=== PATIENT | male | born 1945 | race Caucasian/White ===

== ENCOUNTER → 2018-01-04 | Outpatient (CLI) | payer MEDICARE, OTHER ==
[2015-02-07 09:00] VITALS: BP 141/89
[~2018-01-04] MED LIST: ALPR0.5T6 PO; ASPI-482 PO; ATOR40TA59 PO; BYSTOLIC10 MG PO; DUTA0.5C PO; GLIM1TAB2 PO; LEVO200T5 PO; LEVOXYL; METO100T7 PO; METO50TA6 PO; OMEG1CAP43 PO; PANT40TA3 PO; ZOLP10TA4 PO
--- NOTE | 2018-01-04 14:25 | KCIC ---
MRI Lumbar Spine without contrast History: Neurogenic claudication, bilateral hip pain, bilateral knee pain since 2004 Technique: Multiplanar, multi sequential noncontrast MR imaging was performed of the lumbar spine. Contrast: None Comparison: None Findings: Lumbar vertebral body stature is preserved. There is some motion degradation. There is negligible posterior subluxation of L1 relative L2. There is mild degenerative disc disease L5-S1, L4-5, and L1-2, mild disc desiccation at the other levels. There is hemangioma of the L2 vertebral body, no suspicious marrow edema. There is minimal edema of the anterior corners at L5-S1 probably reactive/degenerative in etiology. 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 Conus terminates at the superior aspect of L2. L1-L2: There is minimal disc osteophyte complex and bulge. There is mild buckling of the ligamentum flavum and facet degenerative change. There is very mild narrowing of the far left lateral recess. There is mild narrowing of the left neural foramen, right neural foramen adequate. L2-L3: There is negligible bulge. There is mild buckling of the ligamentum flavum and facet hypertrophic change. The spinal canal is overall adequate. Neural foramina are adequate. L3-L4: There is disc osteophyte complex and bulge. There is mild buckling of the ligamentum flavum and mild facet hypertrophic change. There is mild narrowing of the far lateral recesses bilaterally. Neural foramina are overall adequate. L4-L5: There is disc osteophyte complex. There is mild buckling of the ligamentum flavum. Spinal canal is overall adequate. There is moderate narrowing of the right neural foramen primarily from posteriorly by facet although also minimal disc osteophyte complex. Left neural foramen is overall adequate. L5-S1: There is minimal bulge. There is ixip-xu-eyaqyujo facet degenerative change. Spinal canal is adequate. There is moderate to severe left and mild right neural foramina compromise. Impression: 1. There is mild narrowing of the far lateral recesses bilaterally at L3-L4 and on the left at L1-2. 2. There is multilevel mild degenerative disc disease and spondylosis. 3. There is moderate to severe narrowing of the left L5-S1 neural foramen, moderate narrowing on the right at L4-5. There is mild narrowing on the left at L1-L2 and on the right at L5-S1. Electronically signed by: Simone Ray MD (01/04/2018 2:22 PM) [facility]
== END | disposition home or self-care (01) ==
LOC: KCIC MRI 13:00
PROVIDERS: ATTEND Family Medicine
DX: M51.36 Other intervertebral disc degeneration, lumbar region (principal); M48.07 Spinal stenosis, lumbosacral region; M47.896 Other spondylosis, lumbar region; M48.061 Spinal stenosis, lumbar region without neurogenic claudication; M25.78 Osteophyte, vertebrae; I10 Essential (primary) hypertension; E78.00 Pure hypercholesterolemia, unspecified; J45.909 Unspecified asthma, uncomplicated; K21.9 Gastro-esophageal reflux disease without esophagitis; Z87.891 Personal history of nicotine dependence
CPT/HCPCS: 72148

== ENCOUNTER 2018-01-24 09:30 | Outpatient (CLI) | payer MEDICARE, OTHER ==
[~2018-01-24 09:30] MED LIST changes: +IOHEXOL 180 MG/ML 10 ML VIAL. IT ONE; +LIDOCAINE WITH 8.4% SOD BICARB 3 ML DISP.SYRIN. INJ ONE
[2018-01-24 11:21] VITALS: BP 123/63
[2018-01-24 11:59] VITALS: BP 140/78
--- NOTE | 2018-01-24 14:57 | RAD ---
Lumbar myelogram, 01/24/2018: History: Back and leg pain Under local anesthesia, aseptic conditions and fluoroscopic guidance a lumbar puncture was performed at the L2-3 level utilizing a 25-gauge Singh spinal needle. Good clear CSF flow was obtained following which 15 cc of Omnipaque 180 was injected into the thecal sac. Spinal needle was then removed and appropriate digital imaging performed. 4.3 minutes of fluoroscopy time was utilized. 14 fluoroscopic spot images were recorded. The patient tolerated the procedure well and was sent to CT in good condition. The following findings were delineated on the myelogram: 1. There are mild anterior extradural defects at all the disc levels from L1-2 down through L4-5. No high-grade central spinal stenosis is evident. 2. Upright views in flexion and extension demonstrate no significant instability. 3. There is mild narrowing of the AP dimension of the thecal sac at the L3-4 level in the upright position due to a combination of anterior and posterior extradural defects. The thecal sac measures 8 mm in AP dimension at this level. 4. There is symmetric opacification of the nerve root sleeves. CT of the lumbar spine-post myelogram, 01/24/2018: Multidetector CT imaging was performed with multiplanar reconstructions produced. Following findings are delineated: 1. At L1-2 there is a vacuum disc phenomena with mild posterior spurring and disc bulging. The central spinal canal is well maintained. There is mild inferior foraminal narrowing bilaterally. 2. At L2-3 there is mild posterior annular bulging. There are mild degenerative changes involving the facet joints. The central spinal canal and neural foramina are well maintained. 3. At L3-4 there are mild degenerative changes involving the facet joints with moderate posterior ligamentous thickening. There is mild posterior disc bulging. The thecal sac measures 10 mm in AP diameter at the midline. The neural foramina are well maintained. 4. At L4-5 there is mild disc space narrowing and mild marginal spurring which is most prominent laterally on the right. There are moderate degenerative changes involving the facet joints with posterior ligamentous thickening. The central spinal canal is well-maintained in the supine position for the CT scans. Spurring is causing moderate right foraminal narrowing medially and mild left foraminal narrowing. 5. At L5-S1 there is moderate broad-based posterior disc bulging and mild marginal spurring. There are moderate hypertrophic degenerative changes involving the facet joints. The central spinal canal is well maintained. There is moderate bilateral foraminal narrowing, worse on the left. 6. There is mild aortoiliac calcific plaquing. The visualized paraspinal soft tissues are otherwise unremarkable. IMPRESSION: Moderate multilevel degenerative change with moderate foraminal narrowing at several levels as described above. No high-grade central spinal stenosis or spinal instability is evident. PQRS Compliance Statement: One or more of the following individualized dose reduction techniques were utilized for this examination: 1. Automated exposure control 2. Adjustment of the mA and/or kV according to patient size 3. Use of iterative reconstruction technique
== END 2018-01-24 12:02 | disposition home or self-care (01) ==
LOC: RAD 09:30
PROVIDERS: ATTEND Neurological Surgery
DX: M47.896 Other spondylosis, lumbar region (principal); M48.061 Spinal stenosis, lumbar region without neurogenic claudication; M48.07 Spinal stenosis, lumbosacral region
CPT/HCPCS: 72132; 72265; Q9965

== ENCOUNTER → 2018-02-22 | Outpatient (CLI) | payer MEDICARE, OTHER ==
[2018-01-24 11:59] VITALS: BP 140/78
[~2018-02-22] MED LIST changes: +APIX5TAB PO; +FINA5TAB4 PO; -IOHEXOL 180 MG/ML 10 ML VIAL. IT ONE; -LIDOCAINE WITH 8.4% SOD BICARB 3 ML DISP.SYRIN. INJ ONE
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
== END | disposition home or self-care (01) ==
LOC: PNCL 10:03
PROVIDERS: ATTEND Anesthesiology
DX: M51.36 Other intervertebral disc degeneration, lumbar region (principal); M79.662 Pain in left lower leg; M79.661 Pain in right lower leg; I10 Essential (primary) hypertension; E11.9 Type 2 diabetes mellitus without complications; E78.5 Hyperlipidemia, unspecified; I48.91 Unspecified atrial fibrillation; M19.90 Unspecified osteoarthritis, unspecified site
CPT/HCPCS: G0463

== ENCOUNTER → 2018-04-14 | Outpatient (CLI) | payer MEDICARE, OTHER ==
--- NOTE | 2018-04-14 18:37 | PAIN ---
DATE OF SERVICE: 04/14/2018 PROGRESS NOTE FOR PAIN CLINIC DIAGNOSES: 1. Lumbar radiculopathy with lumbar degenerative disk disease. 2. Lumbar spinal stenosis. HISTORY OF PRESENT ILLNESS: The patient is a 72-year-old male who returns for followup status post spinal cord stimulator temporary lead placement 5 days ago. The patient has had the leads in now for the full week, has been walking and doing his daily activities with greater ease and comfort, but reports significant pain, decrease in his left leg and his low back, but his right leg is still significantly painful. The patient reports no new motor or sensory deficits, but has significant decreased pain in the left knee, left hip, low back is almost completely pain-free, although his right leg and knee still remains fairly painful, not that much different than prior to the stimulator placement on the right knee only. The patient reports otherwise doing quite well. The patient reports his pain during the last week was 7 on a scale of 10 at its worst, 4 at its least, 5 on average and 4 today. The patient reports it is aching, dull, shooting, on and off intensity. The patient reports no new motor or sensory deficits. Again, no new bowel or bladder incontinence or other complaints. PHYSICAL EXAMINATION: VITAL SIGNS: The patient's blood pressure is 111/77, pulse 59, respirations 16, temperature 98.1 degrees Fahrenheit, height is 6 feet, weight 326 pounds. GENERAL: The patient is awake, alert, oriented, appropriate, very pleasant demeanor. HEENT: Shows normocephalic, atraumatic. Extraocular movements intact and symmetrical. Oral cavity appears moist and pink. Dentition is intact. NECK: Shows anterior throat supple without palpable lymphadenopathy noted. Swallow reflex is symmetrical. CHEST: Shows normal on inspection. Breath sounds clear to auscultation bilaterally. HEART: Shows S1, S2 clear. No murmurs auscultated. ABDOMEN: Soft, nontender, nondistended. No palpable organomegaly is noted. No rebound or guarding demonstrated. BACK: Shows spine grossly in the midline. Normal-appearing thoracic kyphosis and lumbar lordotic curvature. Lumbar spine shows well bandaged spinal cord stimulator leads. Leads were undressed and sterilely removed with the sutures cut. Both leads intact, tips intact x 2. Sites clean and dry, no erythema, no drainage or exudate, no swelling. ASSESSMENT AND PLAN: The patient will follow up as necessary. Would like to consider his options for permanent stimulator. We asked him to give it a few days and see how he feels. If the pain comes back significantly or he decides that it was significant enough improvement to pursue a permanent stimulator, then we will make those arrangements. The patient would like to consider this. I encouraged him to take his time and consider his options. He will follow up at this time on an as needed basis. PAVAN CANO MD DR: JAVAN/marti JOB#: [id number] / [id number]
== END | disposition home or self-care (01) ==
LOC: PNCL 12:03
PROVIDERS: ATTEND Anesthesiology
DX: M51.16 Intervertebral disc disorders with radiculopathy, lumbar region (principal); M48.061 Spinal stenosis, lumbar region without neurogenic claudication
CPT/HCPCS: G0463

== ENCOUNTER 2018-09-22 03:03 | Emergency (ER) | payer MEDICARE, OTHER ==
[~2018-09-22] VITALS: Ht 182.9 cm; Wt 145.1 kg
[2018-09-22] MEDS ORDERED: AMLO10TA8 PO (03:29)
[2018-09-22] MEDS ORDERED: BENZ-8 PO (03:29)
[2018-09-22] MEDS ORDERED: MIRT15TA3 PO (03:29)
[2018-09-22] MEDS ORDERED: FURO-69 PO (03:30)
[2018-09-22] MEDS ORDERED: PRED20TA PO (03:30)
[2018-09-22] MEDS ORDERED: GABA-689 PO (03:31)
[2018-09-22 03:44] LABS: BASO # 0.1 x10^3/uL (0.0-0.2); BASO % 1 % (0-3); EOS # 0.1 x10^3/uL (0.0-0.7); EOS % 2 % (0-3); HEMATOCRIT 48.2 % (39.0-53.0); HEMOGLOBIN 16.1 g/dL (13.0-17.5); LYMPH # 2.7 x10^3/uL (1.0-4.8); LYMPH % 34 % (24-48); MEAN CORPUSCULAR HEMOGLOBIN 33 pg (25-35); MEAN CORPUSCULAR HGB CONC 33 g/dL (31-37); MEAN CORPUSCULAR VOLUME 98 fL (79-100); MONO # 0.9 x10^3/uL (0.0-1.1); MONO % 12 % (0-9); NEUT # 4.2 x10^3uL (1.8-7.7); NEUT % 52 % (31-73); PLATELET COUNT 252 x10^3/uL (140-400); RED CELL DISTRIBUTION WIDTH 14.2 % (11.5-14.5); WHITE BLOOD COUNT 8.1 x10^3/uL (4.0-11.0)
[2018-09-22 03:52] LABS: CALCIUM 9.1 mg/dL (8.5-10.1); GFR 73.7; POTASSIUM 3.9 mmol/L (3.5-5.1)
[2018-09-22 03:58] LABS: ALBUMIN 3.6 g/dL (3.4-5.0); TOTAL BILIRUBIN 0.6 mg/dL (0.2-1.0); TOTAL PROTEIN 7.2 g/dL (6.4-8.2)
[2018-09-22] MEDS ORDERED: IPRATRPIUM/ALBUTEROL 0.5/2.5MG 3 ML NEBU. NEB ONE (04:00)
[2018-09-22] MEDS ORDERED: methylPREDNISolone SOD SUCC PF 125 MG/2 ML VIAL. IV ONE (04:00)
--- NOTE | 2018-09-22 04:13 | RAD ---
PA and lateral chest. HISTORY: Dyspnea PA and lateral views were taken of the chest. Lungs are free of acute infiltrates. Heart is upper normal in size. There is no pleural effusion. There is not evidence of heart failure. IMPRESSION: 1. No acute chest disease. Electronically signed by: Elías Robertson MD (09/22/2018 4:11 AM) [facility]
--- NOTE | 2018-09-22 04:39 | PHYS DOC ---
Past Medical History Past Medical History: A-Fib, Asthma, Hypertension, Hypothyroid Additional Past Medical Histor: lower extremity swelling Past Surgical History: No Surgical History, Other Alcohol Use: None Drug Use: None Adult General Chief Complaint Chief Complaint: COUGH HPI HPI Patient is a 73-year-old male who presents with complaint of cough, wheezing, shortness of breath and just states that he feels like he is not getting any better. Patient was seen about a week ago by his primary provider and was prescribed a Z-Jan as well as a steroid pack. He states that at times the cough gets so bad that it causes his head to feel like it's can explode. He denies any chest pain but does admit to some burning in his chest with the cough. He denies any fever. Patient states that he does get a little bit short of breath with exertion. He states that nothing is improving his symptoms.[] Review of Systems Review of Systems Constitutional: Denies fever or chills [] Respiratory: Positive cough and exertional shortness of breath [] Cardiovascular: No additional information not addressed in HPI [] GI: Denies abdominal pain, nausea, vomiting or diarrhea [] Integument: Denies rash or skin lesions [] Neurologic: Complains of headache without focal weakness or sensory changes [] All other systems were reviewed and found to be within normal limits, except as documented in this note. Current Medications Current Medications Current Medications Medications (Trade) Dose Ordered Sig/[facility] Start Time Stop Time Status Last Admin Dose Admin Albuterol/ Ipratropium (Duoneb) 3 ml 1X ONCE 09/22/18 04:00 09/22/18 04:01 DC Fentanyl Citrate (Fentanyl 2ml Vial) 50 mcg 1X ONCE 09/22/18 05:00 09/22/18 05:01 DC 09/22/18 04:56 50 MCG Methylprednisolone Sodium Succinate (SOLU-Medrol 125MG VIAL) 125 mg 1X ONCE 09/22/18 04:00 09/22/18 04:01 DC 09/22/18 03:56 125 MG Allergies Allergies Allergies Coded Allergies Type Severity Reaction Last Updated Verified No Known Drug Allergies 02/07/15 No Physical Exam Physical Exam Constitutional: Well developed, well nourished, no acute distress, non-toxic appearance. [] HENT: Normocephalic, atraumatic, bilateral external ears normal, oropharynx moist, no oral exudates, nose normal. [] Eyes: PERRLA, EOMI, conjunctiva normal, no discharge. [] Neck: Normal range of motion, no tenderness, supple, no stridor. [] Cardiovascular:Heart rate regular rhythm, no murmur [] Lungs & Thorax: There are worse rhonchi noted bilaterally to auscultation [] Abdomen: Bowel sounds normal, soft, no tenderness. [] Skin: Warm, dry, no erythema, no rash. [] Extremities: No tenderness, no cyanosis, no clubbing, ROM intact. [] Neurologic: Alert and oriented X 3, no focal deficits noted. [] Current Patient Data Vital Signs Vital Signs Date Time Temp Pulse Resp B/P (MAP) Pulse Ox O2 Delivery O2 Flow Rate FiO2 09/22/18 04:56 16 98 Room Air 09/22/18 04:50 82 128/75 (92) 09/22/18 03:10 97.8 97.8 Lab Values Laboratory Tests Test 09/22/18 03:33 White Blood Count 8.1 x10^3/uL (4.0-11.0) Red Blood Count 4.90 x10^6/uL (4.30-5.70) Hemoglobin 16.1 g/dL (13.0-17.5) Hematocrit 48.2 % (39.0-53.0) Mean Corpuscular Volume 98 fL (79-100) Mean Corpuscular Hemoglobin 33 pg (25-35) Mean Corpuscular Hemoglobin Concent 33 g/dL (31-37) Red Cell Distribution Width 14.2 % (11.5-14.5) Platelet Count 252 x10^3/uL (140-400) Neutrophils (%) (Auto) 52 % (31-73) Lymphocytes (%) (Auto) 34 % (24-48) Monocytes (%) (Auto) 12 % (0-9) H Eosinophils (%) (Auto) 2 % (0-3) Basophils (%) (Auto) 1 % (0-3) Neutrophils # (Auto) 4.2 x10^3uL (1.8-7.7) Lymphocytes # (Auto) 2.7 x10^3/uL (1.0-4.8) Monocytes # (Auto) 0.9 x10^3/uL (0.0-1.1) Eosinophils # (Auto) 0.1 x10^3/uL (0.0-0.7) Basophils # (Auto) 0.1 x10^3/uL (0.0-0.2) Sodium Level 144 mmol/L (136-145) Potassium Level 3.9 mmol/L (3.5-5.1) Chloride Level 105 mmol/L (98-107) Carbon Dioxide Level 27 mmol/L (21-32) Anion Gap 12 (6-14) Blood Urea Nitrogen 23 mg/dL (8-26) Creatinine 1.0 mg/dL (0.7-1.3) Estimated GFR (Cockcroft-Gault) 73.7 BUN/Creatinine Ratio 23 (6-20) H Glucose Level 116 mg/dL (70-99) H Calcium Level 9.1 mg/dL (8.5-10.1) Total Bilirubin 0.6 mg/dL (0.2-1.0) Aspartate Amino Transferase (AST) 16 U/L (15-37) Alanine Aminotransferase (ALT) 36 U/L (16-63) Alkaline Phosphatase 83 U/L (46-116) Troponin I Quantitative < 0.017 ng/mL (0.000-0.055) CJ-Nfi-H-Type Natriuretic Peptide 253 pg/mL (0-124) H Total Protein 7.2 g/dL (6.4-8.2) Albumin 3.6 g/dL (3.4-5.0) Albumin/Globulin Ratio 1.0 (1.0-1.7) Laboratory Tests 09/22/18 03:33 Laboratory Tests 09/22/18 03:33 EKG EKG [] Interpretation Time: EKG demonstrates atrial fibrillation with rate of 91. Radiology/Procedures Radiology/Procedures [] Impressions: PROCEDURE: CHEST PA & LATERAL PA and lateral chest. HISTORY: Dyspnea PA and lateral views were taken of the chest. Lungs are free of acute infiltrates. Heart is upper normal in size. There is no pleural effusion. There is not evidence of heart failure. IMPRESSION: 1. No acute chest disease. Electronically signed by: Elías Robertson MD (09/22/2018 4:11 AM) [facility] Course & Med Decision Making Course & Med Decision Making Pertinent Labs and Imaging studies reviewed. (See chart for details) [] Dragon Disclaimer Dragon Disclaimer This electronic medical record was generated, in whole or in part, using a voice recognition dictation system. Departure Departure Impression: Primary Impression: Bronchitis Additional Impressions: Bronchospasm Headache Disposition: 01 HOME, SELF-CARE Condition: STABLE Referrals: YASMEEN GAINES MD (PCP) Patient Instructions: Acute Bronchitis, Bronchospasm, Adult, Headache, FAQs Scripts Hydrocodone/Chlorphen Polis (HYDROCODONE-CHLORPHENIRAM SUSP) 5 Ml Keiry.er.12h 5 ML PO PRN Q12HR PRN for COUGH, #120 ML 0 Refills Prov: SILVIA LICEA Jr. DO 09/22/18 Amoxicillin/Potassium Clav (AUGMENTIN 875-125 TABLET) 1 Each Tablet 1 TAB PO BID, #20 TAB Prov: SILVIA LICEA Jr. DO 09/22/18 Problem Qualifiers Additional Impressions: Headache Headache type: unspecified Headache chronicity pattern: acute headache Intractability: not intractable Qualified Codes: R51 - Headache SILVIA LICEA Jr. DO September 22, 2018 04:39
[2018-09-22 04:50] VITALS: BP 128/75
[2018-09-22] MEDS ORDERED: fentaNYL PF VIAL 100 MCG/2 ML VIAL IV ONE (05:00)
--- NOTE | 2018-09-22 05:18 | RAD ---
CT brain without contrast. HISTORY: Severe headache CT scan of the brain was done without contrast. Sinuses are clear. Mastoids are normally aerated. There is no intracranial hemorrhage or subdural hematoma. There is no mass or shift of the midline. An acute CVA is not identified. There are no abnormal areas of increased or decreased attenuation. IMPRESSION: 1. No intracranial hemorrhage or acute finding noted. Electronically signed by: Elías Robertosn MD (09/22/2018 5:15 AM) [facility]
[2018-09-22] MEDS ORDERED: AMOX1TAB61 PO (05:42)
[2018-09-22] MEDS ORDERED: HYDR5SUS PO (05:42)
[2018-09-22] MEDS ORDERED: HYDROcodone/APAP 7.5/325MG 1 TAB TABLET PO ONE (06:00)
--- NOTE | 2018-09-22 06:16 | EKG ---
[facility] [address] [place] [address] Test Date: 2018-09-22 Test Time: 03:29:14 Pat Name: JARVIS MELVIN Department: Room: Gender: M Data Collection Interviewer: : 1945 Requested By: SILVIA LICEA Order Number: [id number] Reading MD: Measurements Intervals [place] Rate: 91 P: VA: QRS: 12 QRSD: 80 T: 45 QT: 342 QTc: 422 Interpretive Statements ATRIAL FIBRILLATION ABNORMAL ECG No previous ECG available for comparison
== END 2018-09-22 05:55 | disposition home or self-care (01) ==
LOC: ER 03:03
DX: J45.909 Unspecified asthma, uncomplicated (principal); R51 Headache; I48.91 Unspecified atrial fibrillation; I10 Essential (primary) hypertension; E03.9 Hypothyroidism, unspecified
CPT/HCPCS: 36415; 70450; 71046; 80053; 83880; 84484; 85025; 93005; 94640; 96374; 96375; 99285; J2930; J3010